=== PATIENT | male | born 1950 | race American Indian/Alaskan Native ===

== ENCOUNTER 2018-09-03 18:55 | Emergency (ER) | payer OTHER ==
[2018-09-03 20:28] VITALS: BP 179/79
--- NOTE | 2018-09-03 22:44 | XRay Report ---
PROCEDURE: XR SHOULDER BILAT 2+V TECHNIQUE: 3 views of each shoulder were performed HISTORY: bilateral shoulder pain COMPARISONS: None FINDINGS: Mild osteopenia. Hypertrophic spurring of the right acromioclavicular joint. Glenohumeral joint space narrowing with i rregular spurring along the expected insertion of the supraspinatus. Similar findings on the left. No subluxation of the humeral head. Imaged lung apices are clear. IMPRESSION: Bilateral hypertrophic acromioclavicular change with degenerative spurring along the expected inserti on of the supraspinatus on the superolateral humeral head with mild hooking along the undersurface of the acromion likely contributing to impingement. This document is electronically signed by Jamila Diaz MD., September 03 2018 10:39:51 PM ET
[2018-09-03] MEDS ORDERED: TORADOL IM ONE (23:52)
--- NOTE | 2018-09-04 00:18 | Emergency Department Report ---
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 Complaint: Injury to:: right, shoulder Onset/Timin -: days(s) Other Extremity Injury: Shoulder: Right Other Injuries: none Handedness: right Place: work Severity scale (0 -10): 5 Improves With: none Worsens With: movement of extremity Context: other (overuse ) Associated Symptoms: denies: weakness, numbness, neck pain, suspects foreign body, nausea/vomiting, heard/felt popping sensat - Related Data Home Medications Medication Instructions Recorded Confirmed Last Taken Aspirin [Aspirin BABY CHEW TAB] 81 mg PO DAILY 08/15/13 08/15/13 08/14/13 Carvedilol [Coreg] 12.5 mg PO BID 08/15/13 08/15/13 08/14/13 Lisinopril [Zestril] 40 mg PO DAILY 08/15/13 08/15/13 08/14/13 Simvastatin 20 mg PO QDAY 08/15/13 08/15/13 08/14/13 hydroCHLOROthiazide 12.5 mg PO DAILY 08/15/13 08/15/13 08/14/13 [Hydrochlorothiazide] Previous Rx's Medication Instructions Recorded Last Taken Type Acetaminophen [Tylenol Extra 1,000 mg PO QID PRN #30 tablet 09/04/18 Unknown Rx Strength] Cyclobenzaprine [Flexeril] 10 mg PO TID PRN #30 tablet 09/04/18 Unknown Rx Diclofenac Sodium [Voltaren] 100 gm TP TID PRN #1 tube 09/04/18 Unknown Rx predniSONE [Deltasone] 40 mg PO QDAY 5 Days #10 tab 09/04/18 Unknown Rx Allergies Allergy/AdvReac Type Severity Reaction Status Date / Time No Known Allergies Allergy Verified 08/15/13 06:21 ED Review of Systems ROS: Stated complaint: RT SHOULDER PAIN Other details as noted in HPI Constitutional: denies: chills, fever Eyes: denies: eye pain, eye discharge, vision change ENT: denies: ear pain, throat pain Respiratory: denies: cough, shortness of breath, wheezing Cardiovascular: denies: chest pain, palpitations Endocrine: no symptoms reported Gastrointestinal: denies: abdominal pain, nausea, diarrhea Genitourinary: denies: urgency, dysuria Musculoskeletal: arthralgia, other (right shoulder pain ). denies: back pain, joint swelling Skin: denies: rash, lesions Neurological: denies: headache, weakness, paresthesias Psychiatric: denies: anxiety, depression Hematological/Lymphatic: denies: easy bleeding, easy bruising ED Past Medical Hx - Past Medical History Hx Hypertension: Yes Hx Diabetes: Yes (X 15 yrs) - Surgical History Hx Cholecystectomy: Yes Hx Appendectomy: Yes - Social History Smoking Status: Never Smoker Substance Use Type: None - Medications Home Medications: Home Medications Medication Instructions Recorded Confirmed Last Taken Type Aspirin [Aspirin BABY CHEW TAB] 81 mg PO DAILY 08/15/13 08/15/13 08/14/13 History Carvedilol [Coreg] 12.5 mg PO BID 08/15/13 08/15/13 08/14/13 History Lisinopril [Zestril] 40 mg PO DAILY 08/15/13 08/15/13 08/14/13 History Simvastatin 20 mg PO QDAY 08/15/13 08/15/13 08/14/13 History hydroCHLOROthiazide 12.5 mg PO DAILY 08/15/13 08/15/13 08/14/13 History [Hydrochlorothiazide] Acetaminophen [Tylenol Extra 1,000 mg PO QID PRN #30 tablet 09/04/18 Unknown Rx Strength] Cyclobenzaprine [Flexeril] 10 mg PO TID PRN #30 tablet 09/04/18 Unknown Rx Diclofenac Sodium [Voltaren] 100 gm TP TID PRN #1 tube 09/04/18 Unknown Rx predniSONE [Deltasone] 40 mg PO QDAY 5 Days #10 tab 09/04/18 Unknown Rx ED Physical Exam - General Limitations: No Limitations General appearance: alert, in no apparent distress - Head Head exam: Present: atraumatic, normocephalic - Eye Eye exam: Present: normal appearance - ENT ENT exam: Present: mucous membranes moist - Neck Neck exam: Present: normal inspection - Respiratory Respiratory exam: Present: normal lung sounds bilaterally. Absent: respiratory distress - Cardiovascular Cardiovascular Exam: Present: regular rate, normal rhythm. 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 Absent: swelling, abrasion, laceration, ecchymosis, deformity, crepidus, dislocation, erythema, tenderness over AC joint Upper Arm exam: Present: normal inspection, full ROM. Absent: tenderness Elbow exam: Present: full ROM. Absent: tenderness, swelling Forearm Wrist exam: Present: normal inspection, full ROM. Absent: tenderness Hand Wrist exam: Present: normal inspection, full ROM. Absent: tenderness Neuro motor exam: Present: wrist extension intact, thumb opposition intact, thumb IP flexion intact, thumb adduction intact, fingers 2-5 abduction intact Neurosensory exam: Present: 2-point discrimination, radial nerve intact, ulnar nerve intact, median nerve intact Vascular: Present: vascular compromise, normal capillary refill, radial pulse, brachial pulse, ulnar pulse. Absent: pulse deficit radial art, pulse deficit ulnar art, pulse deficit brachial art - Back Exam Back exam: Present: normal inspection, full ROM. Absent: tenderness, CVA tenderness (R), CVA tenderness (L), muscle spasm, paraspinal tenderness, vertebral tenderness, rash noted - Neurological Exam Neurological exam: Present: alert, oriented X3, CN II-XII intact, normal gait, reflexes normal - Psychiatric Psychiatric exam: Present: normal affect, normal mood - Skin Skin exam: Present: warm, dry, intact, normal color. Absent: rash ED Course Vital Signs 09/03/18 20:24 Temperature 98.4 F Pulse Rate 84 Respiratory 18 Rate Blood Pressure 179/79 O2 Sat by Pulse 99 Oximetry ED Medical Decision Making - Medical Decision Making This is a shoulder strain secondary to overuse plan : tylenol voltaren gel, flexeril shoulder exercises , rest, follow up pcp in 2-3 days return to ed if symptoms worsen, pt verbalizee agreement and understanding of discharge plan , pt dc'd to home in stable condition at this time. Critical care attestation.: If time is entered above; I have spent that time in minutes in the direct care of this critically ill patient, excluding procedure time. ED Disposition Clinical Impression: Muscle strain, shoulder region Qualifiers: Encounter type: initial encounter Laterality: right Qualified Code(s): S46.911A - Strain of unspecified muscle, fascia and tendon at shoulder and upper arm level, right arm, initial encounter Disposition: DC-01 TO HOME OR SELFCARE Is pt being admited?: No Does the pt Need Aspirin: No Condition: Stable Instructions: Muscle Strain (ED), Shoulder Sprain (ED) Prescriptions: predniSONE [Deltasone] 40 mg PO QDAY 5 Days #10 tab Cyclobenzaprine [Flexeril] 10 mg PO TID PRN #30 tablet PRN Reason: Muscle Spasm Acetaminophen [Tylenol Extra Strength] 1,000 mg PO QID PRN #30 tablet PRN Reason: pain Diclofenac Sodium [Voltaren] 100 gm TP TID PRN #1 tube PRN Reason: pain Referrals: TERESITA JOYCE MD [Primary Care Provider] - 3-5 Days Forms: Work/School Release Form(ED) Time of Disposition: 00:27
== END 2018-09-04 00:33 | disposition home or self-care (01) ==
LOC: ED 18:55
DX: S46.911A Strain of unspecified muscle, fascia and tendon at shoulder and upper arm level, right arm, initial encounter (principal); I10 Essential (primary) hypertension; E11.9 Type 2 diabetes mellitus without complications; X50.0XXA Overexertion from strenuous movement or load, initial encounter; Y93.89 Activity, other specified; Y92.89 Other specified places as the place of occurrence of the external cause; Y99.8 Other external cause status
CPT/HCPCS: 73030; 96372; 99283; J1885

== ENCOUNTER 2018-11-02 10:15 | Emergency (ER) | payer OTHER ==
--- NOTE | 2018-11-02 11:09 | Emergency Department Report ---
ED General Adult HPI - General Chief complaint: Hyperglycemia Stated complaint: GLUCOSE HIGH/HBP Time Seen by Provider: 11/02/18 10:51 Source: patient, RN notes reviewed, old records reviewed Mode of arrival: Ambulatory Limitations: No Limitations - History of Present Illness Initial comments: This is a 68-year-old gentleman. This patient is not known to this provider previously. His primary care doctor is Dr. Dockery. 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 He reports his blood pressure this morning was 175/95. He reports his sugar was 246. He endorses medication compliance. He denies dietary indiscretions. He denies physical pain. He takes metformin, 1000 mg, twice daily, Januvia, 50 mg, losartan, 25 mg, amlodipine, 10 mg He denies headache, neck pain, chest pain, abdominal pain, shortness of breath, urinary symptoms. He denies COMPLAINTS at this time. He would like to go home. -: Sudden Improves with: none Worsens with: none Associated Symptoms: denies other symptoms - Related Data Home Medications Medication Instructions Recorded Confirmed Last Taken Aspirin [Aspirin BABY CHEW TAB] 81 mg PO DAILY 08/15/13 08/15/13 08/14/13 Carvedilol [Coreg] 12.5 mg PO BID 08/15/13 08/15/13 08/14/13 Lisinopril [Zestril] 40 mg PO DAILY 08/15/13 08/15/13 08/14/13 Simvastatin 20 mg PO QDAY 08/15/13 08/15/13 08/14/13 hydroCHLOROthiazide 12.5 mg PO DAILY 08/15/13 08/15/13 08/14/13 [Hydrochlorothiazide] Previous Rx's Medication Instructions Recorded Last Taken Type Acetaminophen [Tylenol Extra 1,000 mg PO QID PRN #30 tablet 09/04/18 Unknown Rx Strength] Cyclobenzaprine [Flexeril] 10 mg PO TID PRN #30 tablet 09/04/18 Unknown Rx Diclofenac Sodium [Voltaren] 100 gm TP TID PRN #1 tube 09/04/18 Unknown Rx predniSONE [Deltasone] 40 mg PO QDAY 5 Days #10 tab 09/04/18 Unknown Rx Allergies Allergy/AdvReac Type Severity Reaction Status Date / Time No Known Allergies Allergy Verified 11/02/18 10:16 ED Review of Systems ROS: Stated complaint: GLUCOSE HIGH/HBP Other details as noted in HPI Comment: All other systems reviewed and negative ED Past Medical Hx - Past Medical History Hx Hypertension: Yes Hx Diabetes: Yes - Surgical History Hx Cholecystectomy: Yes Hx Appendectomy: Yes - Social History Smoking Status: Never Smoker Substance Use Type: None - Medications Home Medications: Home Medications Medication Instructions Recorded Confirmed Last Taken Type Aspirin [Aspirin BABY CHEW TAB] 81 mg PO DAILY 08/15/13 08/15/13 08/14/13 History Carvedilol [Coreg] 12.5 mg PO BID 08/15/13 08/15/13 08/14/13 History Lisinopril [Zestril] 40 mg PO DAILY 08/15/13 08/15/13 08/14/13 History Simvastatin 20 mg PO QDAY 08/15/13 08/15/13 08/14/13 History hydroCHLOROthiazide 12.5 mg PO DAILY 08/15/13 08/15/13 08/14/13 History [Hydrochlorothiazide] Acetaminophen [Tylenol Extra 1,000 mg PO QID PRN #30 tablet 09/04/18 Unknown Rx Strength] Cyclobenzaprine [Flexeril] 10 mg PO TID PRN #30 tablet 09/04/18 Unknown Rx Diclofenac Sodium [Voltaren] 100 gm TP TID PRN #1 tube 09/04/18 Unknown Rx predniSONE [Deltasone] 40 mg PO QDAY 5 Days #10 tab 09/04/18 Unknown Rx ED Physical Exam - General Limitations: No Limitations General appearance: alert, in no apparent distress - Head Head exam: Present: atraumatic, normocephalic - Eye Eye exam: Present: normal appearance, EOMI. Absent: nystagmus - ENT ENT exam: Present: normal exam, normal orophraynx, mucous membranes moist, normal external ear exam - Neck Neck exam: Present: normal inspection, full ROM. Absent: tenderness, meningismus - Respiratory Respiratory exam: Present: normal lung sounds bilaterally. Absent: respiratory distress - Cardiovascular Cardiovascular Exam: Present: regular rate, normal rhythm, normal heart sounds. Absent: bradycardia, tachycardia, irregular rhythm, systolic murmur, diastolic murmur, rubs, gallop - GI/Abdominal GI/Abdominal exam: Present: soft. Absent: distended, tenderness, guarding, r ebound, rigid, pulsatile mass - Rectal Rectal exam: Present: deferred - Extremities Exam Extremities exam: Present: normal inspection, full ROM, other (2+ pulses noted in the bilateral upper, lower extremities. Compartments soft. No long bony tenderness. The pelvis is stable.). Absent: pedal edema, calf tenderness - Back Exam Back exam: Present: normal inspection, full ROM. Absent: tenderness, CVA tenderness (R), CVA tenderness (L), paraspinal tenderness, vertebral tenderness - Neurological Exam Neurological exam: Present: alert, oriented X3, normal gait, other (Extraocular movements intact. Tongue midline. No facial droop. Facial sensation intact to light touch in the V1, V2, V3 distribution bilaterally. 5 and 5 strength in 4 extremities.. Sensation is intact to light touch in 4 extremities.). Absent: motor sensory deficit - Psychiatric Psychiatric exam: Present: normal affect, normal mood - Skin Skin exam: Present: warm, dry, intact, normal color. Absent: rash ED Course Vital Signs 11/02/18 10:29 Temperature 97.8 F Pulse Rate 82 Respiratory 20 Rate Blood Pressure 171/86 O2 Sat by Pulse 100 Oximetry - Reevaluation(s) Reevaluation #1: 11/02/18 12:30 playing a card game on a cell phone and in no distress ED Medical Decision Making - Lab Data Result diagrams: 11/02/18 10:58 11/02/18 10:58 Vital Signs 11/02/18 10:29 Temperature 97.8 F Pulse Rate 82 Respiratory 20 Rate Blood Pressure 171/86 O2 Sat by Pulse 100 Oximetry Lab Results 11/02/18 11/02/18 11/02/18 Range/Units 10:28 10:54 10:58 WBC 5.4 (4.5-11.0) K/mm3 RBC 4.29 (3.65-5.03) M/mm3 Hgb 12.7 (11.8-15.2) gm/dl Hct 37.7 (35.5-45.6) % MCV 88 (84-94) fl MCH 30 (28-32) pg MCHC 34 (32-34) % RDW 12.4 L (13.2-15.2) % Plt Count 291 (140-440) K/mm3 Sodium (137-145) mmol/L Potassium (3.6-5.0) mmol/L Chloride (98-107) mmol/L Carbon Dioxide (22-30) mmol/L Anion Gap mmol/L BUN (9-20) mg/dL Creatinine (0.8-1.5) mg/dL Estimated GFR ml/min BUN/Creatinine Ratio % Glucose (75-100) mg/dL POC Glucose 289 H (70-105) Calcium (8.4-10.2) mg/dL Magnesium (1.7-2.3) mg/dL Total Creatine Kinase (55-170) units/L Urine Color Yellow (Yellow) Urine Turbidity Clear (Clear) Urine pH 5.0 (5.0-7.0) Ur Specific Wheeler 1.018 (1.003-1.030) Urine Protein <15 mg/dl (Negative) mg/dL Urine Glucose (UA) >=500 (Negative) mg/dL Urine Ketones Neg (Negative) mg/dL Urine Blood Neg (Negative) Urine Nitrite Neg (Negative) Urine Bilirubin Neg (Negative) Urine Urobilinogen < 2.0 (<2.0) mg/dL Ur Leukocyte Esterase Neg (Negative) Urine WBC (Auto) < 1.0 (0.0-6.0) /HPF Urine RBC (Auto) 3.0 (0.0-6.0) /HPF U Epithel Cells (Auto) < 1.0 (0-13.0) /HPF Urine Mucus Few /HPF // Range/Units 10:58 WBC (4.5-11.0) K/mm3 RBC (3.65-5.03) M/mm3 Hgb (11.8-15.2) gm/dl Hct (35.5-45.6) % MCV (84-94) fl MCH (28-32) pg MCHC (32-34) % RDW (13.2-15.2) % Plt Count (140-440) K/mm3 Sodium 134 L (137-145) mmol/L Potassium 4.3 (3.6-5.0) mmol/L Chloride 98.8 (98-107) mmol/L Carbon Dioxide 22 (22-30) mmol/L Anion Gap 18 mmol/L BUN 24 H (9-20) mg/dL Creatinine 1.2 (0.8-1.5) mg/dL Estimated GFR > 60 ml/min BUN/Creatinine Ratio 20 % Glucose 322 H (75-100) mg/dL POC Glucose (70-105) Calcium 9.1 (8.4-10.2) mg/dL Magnesium 2.10 (1.7-2.3) mg/dL Total Creatine Kinase 130 (55-170) units/L Urine Color (Yellow) Urine Turbidity (Clear) Urine pH (5.0-7.0) Ur Specific Wheeler (1.003-1.030) Urine Protein (Negative) mg/dL Urine Glucose (UA) (Negative) mg/dL Urine Ketones (Negative) mg/dL Urine Blood (Negative) Urine Nitrite (Negative) Urine Bilirubin (Negative) Urine Urobilinogen (<2.0) mg/dL Ur Leukocyte Esterase (Negative) Urine WBC (Auto) (0.0-6.0) /HPF Urine RBC (Auto) (0.0-6.0) /HPF U Epithel Cells (Auto) (0-13.0) /HPF Urine Mucus /HPF - Medical Decision Making Differential diagnosis, including but not limited to: Chronic hyperglycemia, chronic hypertension Assessment and plan: 68-year-old gentleman with complaint of hyperglycemia and hypertension. The patient is afebrile with reassuring vital signs. He does not appear to be in any acute distress. He has known history of hyperglycemia, and known history of hypertension. He currently is not exhibiting signs or symptoms that would require emergent hospitalization. He is given subcutaneous insulin for his hyperglycemia. The patient is medically suitable to be discharged to follow-up with an outpatient primary care doctor. Diet and lifestyle modifications. Critical care attestation.: If time is entered above; I have spent that time in minutes in the direct care of this critically ill patient, excluding procedure time. ED Disposition Clinical Impression: Elevated blood pressure reading, Hyperglycemia Disposition: DC-01 TO HOME OR SELFCARE Is pt being admited?: No Does the pt Need Aspirin: No Condition: Stable Additional Instructions: Please continue current outpatient medications. Participate in physical activity as tolerated. Please make certain to remain compliant with diet that is in accordance and appropriate with diabetic requirements. The patient may looked this up on line at the [place] [employer] website. Follow-up with her primary care doctor within 4-6 weeks. Long-term complications of hypertension and high blood sugar include stroke, heart attack, disability, paralysis, loss of quality of life. Please return to the emergency room right away with new, worsening or different symptoms, or symptoms not present on the initial emergency room evaluation. Referrals: PRIMARY CARE, [Primary Care Provider] - 3-5 Days JAVI DOCKERY MD [Referring] - 3-5 Days ANTONELLA DOCKERY MD [Referring] - 3-5 Days KETURAH DOCKERY MD [Referring] - 3-5 Days TERESITA DOCKERY MD [Referring] - 3-5 Days FARA DOCKERY JR, MD [Referring] - 3-5 Days JESSA DOCKERY MD [Referring] - 3-5 Days
[2018-11-02 11:15] LABS: Hematocrit 37.7 % (35.5-45.6); Hemoglobin 12.7 gm/dl (11.8-15.2); Mean Corpuscular HGB Conc 34 % (32-34); Mean Corpuscular Volume 88 fl (84-94); Platelet Count 291 K/mm3 (140-440); Red Blood Count 4.29 M/mm3 (3.65-5.03); Red Cell Distribution Width 12.4 % (13.2-15.2)
[2018-11-02 11:17] LABS: Bilirubin,Urine NEG (Negative); Blood,Urine NEG (Negative); Color,Urine Yellow (Yellow); Mucus,Urine FEW /HPF; Protein,Urine <15 mg/dL mg/dL (Negative); Urobilinogen,Urine < 2.0 mg/dL (<2.0); WBC,Urine < 1.0 /HPF (0.0-6.0)
[2018-11-02 11:31] LABS: BUN/Creatinine Ratio 20; Blood Urea Nitrogen 24 mg/dL (9-20); Calcium 9.1 mg/dL (8.4-10.2); Hemolysis Index 7
[2018-11-02] MEDS ORDERED: HumuLIN R SUB-Q ONE (12:05)
[2018-11-02 12:32] VITALS: BP 173/78
== END 2018-11-02 12:43 | disposition home or self-care (01) ==
LOC: ED 10:15
DX: E11.65 Type 2 diabetes mellitus with hyperglycemia (principal); I10 Essential (primary) hypertension; Z79.82 Long term (current) use of aspirin; Z90.49 Acquired absence of other specified parts of digestive tract
CPT/HCPCS: 36415; 80048; 81001; 82550; 82962; 83735; 85027; 96372; 99283; J1815

== ENCOUNTER 2020-02-04 07:17 | Emergency (ER) | payer MEDICARE ==
[2020-02-04 07:55] LABS: Basophils # (Auto) 0.1 K/mm3 (0.0-0.1); Basophils % (Auto) 1.6 % (0.0-1.8); Eosinophils # (Auto) 0.1 K/mm3 (0.0-0.4); Eosinophils % (Auto) 1.4 % (0.0-4.3); Hematocrit 36.8 % (35.5-45.6); Hemoglobin 12.6 gm/dl (11.8-15.2); Lymphocytes # (Auto) 1.8 K/mm3 (1.2-5.4); Mean Corpuscular HGB Conc 34 % (32-34); Mean Corpuscular Volume 86 fl (84-94); Monocytes # (Auto) 0.6 K/mm3 (0.0-0.8); Monocytes % (Auto) 8.3 % (0.0-7.3); Platelet Count 313 K/mm3 (140-440); Red Blood Count 4.27 M/mm3 (3.65-5.03); Red Cell Distribution Width 15.1 % (13.2-15.2)
--- NOTE | 2020-02-04 08:01 | XRay Report ---
CHEST 2 VIEWS INDICATION: SOB. COMPARISON: 01/03/2020. FINDINGS: Support devices: None. Heart: Within normal limits. Lungs/Pleura: Mild developing opacity left mid and lower zone and right base laterally. No signific ant pleural effusion. IMPRESSION: Suspect early, multifocal pneumonia. Signer Name: Jun Hernandez MD Signed: 02/04/2020 7:56 AM Workstation Name: [id number]
[2020-02-04 08:15] LABS: BUN/Creatinine Ratio 13; Blood Urea Nitrogen 13 mg/dL (9-20); Calcium 9.6 mg/dL (8.4-10.2); Hemolysis Index 13
[2020-02-04] MEDS ORDERED: SODIUM CHLORIDE 0.9% 1000 ML 1,000 ML IV ONE (08:15)
--- NOTE | 2020-02-04 09:41 | Emergency Department Report ---
ED Shortness of Breath HPI - General Chief Complaint: Dyspnea/Respdistress Stated Complaint: SOB Time Seen by Provider: 02/04/20 08:08 Source: patient Mode of arrival: Ambulatory Limitations: No Limitations - History of Present Illness Initial Comments: 69-year-old -[place] Citizen male with a past medical history of diabetes hypertension and cholesterolemia presents to the emergency room for shortness of breath with exertion. Patient was seen here on 01/03/2020 and was diagnosed with COVID 19. At that time patient was satting around 84 to 97% on room air. Patient comes in still reporting no taste no smell. Reports shortness of breath about the same as he was discharged. Patient states that shortness of breath is worse with exertion. Patient admits to fever chills x1 night with sweats. Patient reports he is constantly feels cold. He does admit to increased sleepiness decreased appetite. Patient reports he has not been able to follow- up with his primary care doctor Dr. Dockery at [facility] in [place] since they will see him because he is tested positive for COVID. MD Complaint: shortness of breath Onset/Timin -: week(s) Known History Of: diabetes, recurrent pnemonia, other (Hypertension) Treatments Prior to Arrival: none - Related Data Home Medications Medication Instructions Recorded Confirmed Last Taken Aspirin [Aspirin BABY CHEW TAB] 81 mg PO DAILY 08/15/13 01/04/20 08/14/13 Lisinopril [Zestril] 40 mg PO DAILY 08/15/13 01/04/20 08/14/13 Simvastatin 20 mg PO QDAY 08/15/13 01/04/20 08/14/13 carvediloL [Coreg] 12.5 mg PO BID 08/15/13 01/04/20 08/14/13 hydroCHLOROthiazide 12.5 mg PO DAILY 08/15/13 01/04/20 08/14/13 [Hydrochlorothiazide] Previous Rx's Medication Instructions Recorded Last Taken Type Cyclobenzaprine [Flexeril 10 MG 10 mg PO TID PRN #30 tablet 09/04/18 Unknown Rx TAB] Diclofenac Sodium [Voltaren] 100 gm TP TID PRN #1 tube 09/04/18 Unknown Rx dexAMETHasone [Decadron] 6 mg PO DAILY 7 Days #7 tablet 01/06/20 Unknown Rx guaiFENesin ER [Mucinex ER] 600 mg PO Q12H 10 Days #20 01/06/20 Unknown Rx tablet.er Azithromycin [Zithromax] 250 mg PO DAILY #6 tablet 02/04/20 Unknown Rx Allergies Allergy/AdvReac Type Severity Reaction Status Date / Time No Known Allergies Allergy Verified 11/02/18 10:16 ED Review of Systems ROS: Stated complaint: SOB Other details as noted in HPI Comment: All other systems reviewed and negative ED Past Medical Hx - Past Medical History Hx Hypertension: Yes Hx Diabetes: Yes Hx Sickle Cell Disease: No Hx HIV: No - Surgical History Hx Cholecystectomy: Yes Hx Appendectomy: Yes - Social History Smoking Status: Never Smoker Substance Use Type: Alcohol - Medications Home Medications: Home Medications Medication Instructions Recorded Confirmed Last Taken Type Aspirin [Aspirin BABY CHEW TAB] 81 mg PO DAILY 08/15/13 01/04/20 08/14/13 History Lisinopril [Zestril] 40 mg PO DAILY 08/15/13 01/04/20 08/14/13 History Simvastatin 20 mg PO QDAY 08/15/13 01/04/20 08/14/13 History carvediloL [Coreg] 12.5 mg PO BID 08/15/13 01/04/20 08/14/13 History hydroCHLOROthiazide 12.5 mg PO DAILY 08/15/13 01/04/20 08/14/13 History [Hydrochlorothiazide] Cyclobenzaprine [Flexeril 10 MG 10 mg PO TID PRN #30 tablet 09/04/18 01/04/20 Unknown Rx TAB] Diclofenac Sodium [Voltaren] 100 gm TP TID PRN #1 tube 09/04/18 01/04/20 Unknown Rx dexAMETHasone [Decadron] 6 mg PO DAILY 7 Days #7 tablet 01/06/20 Unknown Rx guaiFENesin ER [Mucinex ER] 600 mg PO Q12H 10 Days #20 01/06/20 Unknown Rx tablet.er Azithromycin [Zithromax] 250 mg PO DAILY #6 tablet 02/04/20 Unknown Rx ED Physical Exam - General Limitations: No Limitations General appearance: alert - Head Head exam: Present: atraumatic, normocephalic - Eye Eye exam: Present: normal appearance - ENT ENT exam: Present: mucous membranes moist - Neck Neck exam: Present: normal inspection, full ROM - Respiratory Respiratory exam: Present: normal lung sounds bilaterally - Cardiovascular Cardiovascular Exam: Present: regular rate, normal rhythm. Absent: systolic murmur, diastolic murmur, rubs, gallop - GI/Abdominal GI/Abdominal exam: Present: soft, normal bowel sounds - Extremities Exam Extremities exam: Present: normal inspection, full ROM - Back Exam Back exam: Present: normal inspection, full ROM - Neurological Exam Neurological exam: Present: alert - Psychiatric Psychiatric exam: Present: normal affect, normal mood - Skin Skin exam: Present: warm, dry, intact, normal color. Absent: rash ED Course Vital Signs 02/04/20 02/04/20 02/04/20 07:26 08:51 09:00 Temperature 98.6 F 98.5 F Pulse Rate 94 H 77 76 Respiratory 18 22 20 Rate Blood Pressure 161/85 178/84 Blood Pressure 178/84 [Left] O2 Sat by Pulse 99 100 100 Oximetry 02/04/20 02/04/20 02/04/20 09:35 10:01 10:30 Temperature Pulse Rate 76 78 Respiratory 20 19 Rate Blood Pressure 173/88 172/92 163/75 Blood Pressure [Left] O2 Sat by Pulse 100 100 100 Oximetry 02/04/20 02/04/20 11:00 12:01 Temperature Pulse Rate 76 76 Respiratory 15 20 Rate Blood Pressure 154/77 146/75 Blood Pressure [Left] O2 Sat by Pulse 98 99 Oximetry ED Medical Decision Making - Lab Data Result diagrams: 02/04/20 07:35 02/04/20 11:33 Laboratory Tests 02/04/20 02/04/20 02/04/20 07:35 07:35 08:35 WBC 7.0 RBC 4.27 Hgb 12.6 Hct 36.8 MCV 86 MCH 30 MCHC 34 RDW 15.1 Plt Count 313 Lymph % (Auto) 26.0 Tate % (Auto) 8.3 H Eos % (Auto) 1.4 Baso % (Auto) 1.6 Lymph # 1.8 Tate # 0.6 Eos # 0.1 Baso # 0.1 Seg Neutrophils % 62.7 Seg Neutrophils # 4.4 VBG pH Sodium 131 L Potassium 4.2 Chloride 96.2 L Carbon Dioxide 21 L Anion Gap 18 BUN 13 Creatinine 1.0 Estimated GFR > 60 BUN/Creatinine Ratio 13 Glucose 471 H POC Glucose Calcium 9.6 Total Bilirubin 0.40 Direct Bilirubin < 0.2 Indirect Bilirubin 0.2 AST 9 ALT 7 Alkaline Phosphatase 107 Total Protein 7.0 Albumin 3.6 L Albumin/Globulin Ratio 1.1 02/04/20 02/04/20 02/04/20 08:35 10:14 11:33 WBC RBC Hgb Hct MCV MCH MCHC RDW Plt Count Lymph % (Auto) Tate % (Auto) Eos % (Auto) Baso % (Auto) Lymph # Tate # Eos # Baso # Seg Neutrophils % Seg Neutrophils # VBG pH 7.326 Sodium 139 D Potassium 4.0 Chloride 105.4 Carbon Dioxide 20 L Anion Gap 18 BUN 12 Creatinine 0.8 Estimated GFR > 60 BUN/Creatinine Ratio 15 Glucose 131 H POC Glucose 350 H Calcium 9.0 Total Bilirubin Direct Bilirubin Indirect Bilirubin AST ALT Alkaline Phosphatase Total Protein Albumin Albumin/Globulin Ratio - EKG Data EKG shows normal: sinus rhythm Rate: normal - Radiology Data Radiology results: report reviewed Referring Physician:GARFIELD HUNTERPatient Name:KEREN SANCHEZPatient ID:[id number] of :[id number]:MaleAccession:[id number] Date:[id number] Status:Finalized Findings [facility] [address] [place] [address] XRay Report Signed Patient: KEREN SANCHEZ MR#: [id number] : 1950 Acct:[id number] Age/Sex: 69 / M ADM Date: 02/04/20 Loc: ED Attending Dr: Ordering Physician: GARFIELD HUNTER MD Date of Service: 02/04/20 Procedure(s): XR chest routine 2V Accession Number(s): [id number] cc: GARFIELD HUNTER MD Fluoro Time In Minutes: CHEST 2 VIEWS INDICATION: SOB. COMPARISON: 01/03/2020. FINDINGS: Support devices: None. Heart: Within normal limits. Lungs/Pleura: Mild developing opacity left mid and lower zone and right base laterally. No significant pleural effusion. IMPRESSION: Suspect early, multifocal pneumonia. Signer Name: Jun Hernandez MD Signed: 02/04/2020 7:56 AM Workstation Name: [id number] Transcribed By: ES Dictated By: Jun Hernandez MD Electronically Authenticated By: Jun Hernandez MD Signed Date/Time: 02/04/20755 DD/ 0755 TD/TT: - Medical Decision Making 69-year-old -[place] Citizen male with a past medical history of diabetes hypertension and cholesterolemia presents to the emergency room for shortness of breath with exertion. Patient was seen here on 01/03/2020 and was diagnosed with COVID 19. At that time patient was satting around 84 to 97% on room air. Patient comes in still reporting no taste no smell. Reports shortness of breath about the same as he was discharged. Patient states that shortness of breath is worse with exertion. Patient admits to fever chills x1 night with sweats. Patient reports he is constantly feels cold. He does admit to increased sleepiness decreased appetite. Patient reports he has not been able to follow- up with his primary care doctor Dr. Dockery at [facility] in [place] since they will see him because he is tested positive for COVID. Patient's blood sugar was 471. IV initiated normal saline 10 units of insulin. Patient is on reference data expert with pulse ox monitor. Patient's vital signs have been stable heart rate of 94 pulse ox of 99%. EKG is stable just shows left ventricular hypertrophy. Patient is not exhibiting any signs for emergent hospitalization. Patient was given IV normal saline and IV regular insulin with improvement of his hyperglycemic from 471 now to 131. Patient is medically suitable to be discharged with primary care follow-up. Patient is encouraged to follow a diabetic diet increase his water intake. Critical care attestation.: If time is entered above; I have spent that time in minutes in the direct care of this critically ill patient, excluding procedure time. ED Disposition Clinical Impression: Hyperglycemia, Diabetes 1.5, managed as type 2 Pneumonia Qualifiers: Pneumonia type: due to unspecified organism Laterality: bilateral Lung location: lower lobe of lung Qualified Code(s): J18.9 - Pneumonia, unspecified organism Disposition: DC-01 TO HOME OR SELFCARE Is pt being admited?: No Does the pt Need Aspirin: No Condition: Stable Instructions: Diabetes Mellitus Type 2 in Adults (ED), Community-acquired Pneumonia (ED) Additional Instructions: Please continue taking care of your chronic disease management. Follow-up with your primary care provider. Return back to the emergency room for any worsening symptoms. Prescriptions: Azithromycin [Zithromax] 250 mg PO DAILY #6 tablet Referrals: PRIMARY CARE,MD [Primary Care Provider] - 3-5 Days MARK BUTCHER MD [Staff Physician] - 3-5 Days Forms: Work/School Release Form(ED)
[2020-02-04 09:44] LABS: Alanine Aminotransferase 7 units/L (7-56); Albumin 3.6 g/dL (3.9-5)
[2020-02-04] MEDS ORDERED: INSULIN REGULAR, HUMAN 100 UNIT/ML 3ML VIAL IV ONE (09:45)
[2020-02-04 09:48] LABS: Bilirubin,Direct < 0.2 mg/dL (0-0.2)
[2020-02-04] MEDS ORDERED: INSULIN REGULAR, HUMAN 100 UNITS/1 ML ONE (10:00)
[2020-02-04 12:20] LABS: BUN/Creatinine Ratio 15; Blood Urea Nitrogen 12 mg/dL (9-20); Hemolysis Index 11
[2020-02-04 12:43] VITALS: BP 146/75
== END 2020-02-04 13:20 | disposition home or self-care (01) ==
LOC: ED 07:17
DX: J18.9 Pneumonia, unspecified organism (principal); E11.65 Type 2 diabetes mellitus with hyperglycemia; I10 Essential (primary) hypertension; Z90.49 Acquired absence of other specified parts of digestive tract; Z79.2 Long term (current) use of antibiotics; Z79.899 Other long term (current) drug therapy
CPT/HCPCS: 36415; 71046; 80048; 80076; 82805; 82962; 85025; 96361; 96374; 99284; J7030; 93005; J1815

== ENCOUNTER 2020-04-22 03:31 | Emergency (ER) | payer MEDICARE ==
[2020-04-22 04:09] LABS: Hematocrit 41.3 % (35.5-45.6); Hemoglobin 13.6 gm/dl (11.8-15.2); Mean Corpuscular HGB Conc 33 % (32-34); Mean Corpuscular Volume 87 fl (84-94); Platelet Count 254 K/mm3 (140-440); Red Blood Count 4.73 M/mm3 (3.65-5.03); Red Cell Distribution Width 12.9 % (13.2-15.2)
[2020-04-22 04:31] LABS: Alanine Aminotransferase 17 units/L (7-56); BUN/Creatinine Ratio 13; Blood Urea Nitrogen 15 mg/dL (9-20); Calcium 9.2 mg/dL (8.4-10.2); Hemolysis Index 3
[2020-04-22 04:31] LABS: Bilirubin,Urine NEG (Negative); Blood,Urine LG (Negative); Color,Urine Red (Yellow); Urobilinogen,Urine < 2.0 mg/dL (<2.0)
[2020-04-22 04:53] LABS: Basophils # (Auto) 0.1 K/mm3 (0.0-0.1); Eosinophils % (Auto) 0.1 % (0.0-4.3); Lymphocytes # (Auto) 1.2 K/mm3 (1.2-5.4); Lymphocytes % (Auto) 7.7 % (13.4-35.0); Monocytes # (Auto) 0.6 K/mm3 (0.0-0.8); Monocytes % (Auto) 3.8 % (0.0-7.3)
[2020-04-22 04:53] LABS: Protein,Urine >500 mg/dL (Negative); RBC,Urine > 182.0 /HPF (0.0-6.0)
[2020-04-22 04:54] LABS: WBC,Urine > 182.0 /HPF (0.0-6.0)
[2020-04-22] MEDS ORDERED: INSULIN REGULAR, HUMAN 100 UNIT/ML 3ML VIAL SUB-Q ONE ×2 (09:49→10:53)
[2020-04-22] MEDS ORDERED: SODIUM CHLORIDE 0.9% IRR 500 ML BOTTLE IR ONE (09:49)
--- NOTE | 2020-04-22 09:51 | Emergency Department Report ---
ED General Adult HPI - General Chief complaint: Urogenital-Male Stated complaint: BLOOD IN URINE PUI?: No Time Seen by Provider: 04/22/20 09:40 Source: patient, RN notes reviewed, old records reviewed Mode of arrival: Ambulatory Limitations: No Limitations - History of Present Illness Initial comments: The patient was evaluated in the emergency department for symptoms described in the history of present illness. He/she was evaluated in the context of the global COVID-19 pandemic, which necessitated consideration that the patient might be at risk for infection with the virus that causes COVID-19. Institutional protocols and algorithms that pertain to the evaluation of patients at risk for COVID-19 are in a state of rapid change based on information released by regulatory bodies including the CDC and federal and state organizations. These policies and algorithms were followed during the patient's care in the emergency department. Please note that these policies, procedures and recommendations changed on a rapid basis. Patient is a pleasant and cooperative 69-year-old gentleman. I have evaluated him in the past. His past medical history includes heart disease, hypertension, diabetes, recent hospitalization for COVID-19 The patient presents to the ER today with a complaint of essentially painless hematuria. It started yesterday. He has very mild dysuria. He denies headache, neck pain, chest pain, abdominal pain, shortness of breath or muscular pain. He denies hematemesis, bright red blood per rectum. He denies travel to the [place], [place], [place], and [place]. He is a former tobacco smoker, but has not smoked for 30 years. He also denies industrial exposure to blue dye. He endorses minimal dysuria. Hematuria essentially constant since last night, he does not take systemic anti coagulation, but believes he takes aspirin. He does take "pills" for his diabetes, he did not receive his diabetic medication last night or this morning. -: Gradual, hour(s) Consistency: constant Improves with: none Worsens with: none Associated Symptoms: denies other symptoms - Related Data Home Medications Medication Instructions Recorded Confirmed Last Taken Aspirin [Aspirin BABY CHEW TAB] 81 mg PO DAILY 08/15/13 01/04/20 08/14/13 Lisinopril [Zestril] 40 mg PO DAILY 08/15/13 01/04/20 08/14/13 Simvastatin 20 mg PO QDAY 08/15/13 01/04/20 08/14/13 carvediloL [Coreg] 12.5 mg PO BID 08/15/13 01/04/20 08/14/13 hydroCHLOROthiazide 12.5 mg PO DAILY 08/15/13 01/04/20 08/14/13 [Hydrochlorothiazide] Previous Rx's Medication Instructions Recorded Last Taken Type dexAMETHasone [Decadron] 6 mg PO DAILY 7 Days #7 tablet 01/06/20 Unknown Rx guaiFENesin ER [Mucinex ER] 600 mg PO Q12H 10 Days #20 01/06/20 Unknown Rx tablet.er Nitrofurantoin Gilmer/M-Cryst 100 mg PO Q12HR #13 capsule 04/22/20 Unknown Rx [Macrobid CAP] Allergies Allergy/AdvReac Type Severity Reaction Status Date / Time No Known Allergies Allergy Verified 11/02/18 10:16 ED Review of Systems ROS: Stated complaint: BLOOD IN URINE Other details as noted in HPI Comment: All other systems reviewed and negative Genitourinary: as per HPI, hematuria. denies: discharge, testicular pain, testicular mass ED Past Medical Hx - Past Medical History Previous Medical History?: Yes Hx Hypertension: Yes Hx Diabetes: Yes Hx Sickle Cell Disease: No Hx HIV: No - Surgical History Past Surgical History?: Yes Hx Cholecystectomy: Yes Hx Appendectomy: Yes - Social History Smoking Status: Never Smoker Substance Use Type: Alcohol - Medications Home Medications: Home Medications Medication Instructions Recorded Confirmed Last Taken Type Aspirin [Aspirin BABY CHEW TAB] 81 mg PO DAILY 08/15/13 01/04/20 08/14/13 History Lisinopril [Zestril] 40 mg PO DAILY 08/15/13 01/04/20 08/14/13 History Simvastatin 20 mg PO QDAY 08/15/13 01/04/20 08/14/13 History carvediloL [Coreg] 12.5 mg PO BID 08/15/13 01/04/20 08/14/13 History hydroCHLOROthiazide 12.5 mg PO DAILY 08/15/13 01/04/20 08/14/13 History [Hydrochlorothiazide] dexAMETHasone [Decadron] 6 mg PO DAILY 7 Days #7 tablet 01/06/20 Unknown Rx guaiFENesin ER [Mucinex ER] 600 mg PO Q12H 10 Days #20 01/06/20 Unknown Rx tablet.er Nitrofurantoin Gilmer/M-Cryst 100 mg PO Q12HR #13 capsule 04/22/20 Unknown Rx [Macrobid CAP] ED Physical Exam - General Limitations: No Limitations, Other (Chaperoned by nurse Sofia Mackey) General appearance: alert, in no apparent distress - Head Head exam: Present: atraumatic, normocephalic - Eye Eye exam: Present: normal appearance, EOMI. Absent: nystagmus - ENT ENT exam: Present: normal exam, normal orophraynx, mucous membranes moist, normal external ear exam - Neck Neck exam: Present: normal inspection, full ROM. Absent: tenderness, mening ismus - Respiratory Respiratory exam: Present: normal lung sounds bilaterally. Absent: respiratory distress, wheezes, rales, rhonchi, stridor, decreased breath sounds - Cardiovascular Cardiovascular Exam: Present: regular rate, normal rhythm, normal heart sounds. Absent: bradycardia, tachycardia, irregular rhythm, systolic murmur, diastolic murmur, rubs, gallop - GI/Abdominal GI/Abdominal exam: Present: soft, normal bowel sounds. Absent: distended, tenderness, guarding, rebound, rigid, pulsatile mass - Rectal Rectal exam: Present: deferred - exam: Present: normal inspection, other (There is normal testicular lie. There is normal cremasteric reflex. There is no testicular tenderness. There is no testicular swelling). Absent: testicular tenderness, circumcision (Uncircumcised, foreskin easily retracts) External exam: Present: normal external exam, other (Chaperoned by nurse Sofia Mackey) - Extremities Exam Extremities exam: Present: normal inspection, full ROM, other (2+ pulses noted in the bilateral upper and lower extremities. There is no palpable cord. negative Homans sign. Muscular compartments are soft. The pelvis is stable.). Absent: tenderness, pedal edema, joint swelling, calf tenderness - Back Exam Back exam: Present: normal inspection, full ROM. Absent: tenderness, CVA tenderness (R), CVA tenderness (L), paraspinal tenderness, vertebral tenderness - Neurological Exam Neurological exam: Present: alert, oriented X3, normal gait, other (No facial droop. Tongue midline. Extraocular movements intact bilaterally. Facial sensation intact to light touch in V1, V2, V3 distribution bilaterally. 5 and a 5 strength in 4 extremities. Sensation intact to light touch in 4 extremities.). Absent: motor sensory deficit - Psychiatric Psychiatric exam: Present: normal affect, normal mood - Skin Skin exam: Present: warm, dry, intact, normal color. Absent: rash ED Course Vital Signs 04/22/20 04/22/20 03:39 10:28 Temperature 98.9 F 98.8 F Pulse Rate 121 H 93 H Respiratory 18 18 Rate Blood Pressure 143/81 157/73 [Right] O2 Sat by Pulse 96 99 Oximetry ED Medical Decision Making - Lab Data Result diagrams: 04/22/20 03:40 04/22/20 03:40 Vital Signs 04/22/20 04/22/20 03:39 10:28 Temperature 98.9 F 98.8 F Pulse Rate 121 H 93 H Respiratory 18 18 Rate Blood Pressure 143/81 157/73 [Right] O2 Sat by Pulse 96 99 Oximetry Lab Results 04/22/20 04/22/20 04/22/20 Range/Units 03:40 03:40 10:45 WBC 15.3 H (4.5-11.0) K/mm3 RBC 4.73 (3.65-5.03) M/mm3 Hgb 13.6 (11.8-15.2) gm/dl Hct 41.3 (35.5-45.6) % MCV 87 (84-94) fl MCH 29 (28-32) pg MCHC 33 (32-34) % RDW 12.9 L (13.2-15.2) % Plt Count 254 (140-440) K/mm3 Lymph % (Auto) 7.7 L (13.4-35.0) % Gilmer % (Auto) 3.8 (0.0-7.3) % Eos % (Auto) 0.1 (0.0-4.3) % Baso % (Auto) 1.0 (0.0-1.8) % Lymph # (Auto) 1.2 (1.2-5.4) K/mm3 Gilmer # (Auto) 0.6 (0.0-0.8) K/mm3 Eos # (Auto) 0.0 (0.0-0.4) K/mm3 Baso # (Auto) 0.1 (0.0-0.1) K/mm3 Seg Neutrophils % 87.4 H (40.0-70.0) % Seg Neutrophils # 13.4 H (1.8-7.7) K/mm3 Sodium 132 L (137-145) mmol/L Potassium 3.7 (3.6-5.0) mmol/L Chloride 96.7 L (98-107) mmol/L Carbon Dioxide 20 L (22-30) mmol/L Anion Gap 19 mmol/L BUN 15 (9-20) mg/dL Creatinine 1.2 (0.8-1.3) mg/dL Estimated GFR > 60 ml/min BUN/Creatinine Ratio 13 % Glucose 370 H (75-100) mg/dL POC Glucose 304 H (70-105) mg/dL Calcium 9.2 (8.4-10.2) mg/dL Total Bilirubin 1.00 (0.1-1.2) mg/dL AST 11 (5-40) units/L ALT 17 (7-56) units/L Alkaline Phosphatase 88 (35-129) units/L Total Creatine Kinase 57 (55-170) units/L Total Protein 7.5 (6.3-8.2) g/dL Albumin 4.0 (3.9-5) g/dL Albumin/Globulin Ratio 1.1 % Urine Color (Yellow) Urine Turbidity (Clear) Urine pH (5.0-7.0) Ur Specific [place] (1.003-1.030) Urine Protein (Negative) mg/dL Urine Glucose (UA) (Negative) mg/dL Urine Ketones (Negative) mg/dL Urine Blood (Negative) Urine Nitrite (Negative) Urine Bilirubin (Negative) Urine Urobilinogen (<2.0) mg/dL Ur Leukocyte Esterase (Negative) Urine WBC (Auto) (0.0-6.0) /HPF Urine RBC (Auto) (0.0-6.0) /HPF Urine WBC Clumps /HPF 11/15/20 Range/Units Unknown WBC (4.5-11.0) K/mm3 RBC (3.65-5.03) M/mm3 Hgb (11.8-15.2) gm/dl Hct (35.5-45.6) % MCV (84-94) fl MCH (28-32) pg MCHC (32-34) % RDW (13.2-15.2) % Plt Count (140-440) K/mm3 Lymph % (Auto) (13.4-35.0) % Gilmer % (Auto) (0.0-7.3) % Eos % (Auto) (0.0-4.3) % Baso % (Auto) (0.0-1.8) % Lymph # (Auto) (1.2-5.4) K/mm3 Gilmer # (Auto) (0.0-0.8) K/mm3 Eos # (Auto) (0.0-0.4) K/mm3 Baso # (Auto) (0.0-0.1) K/mm3 Seg Neutrophils % (40.0-70.0) % Seg Neutrophils # (1.8-7.7) K/mm3 Sodium (137-145) mmol/L Potassium (3.6-5.0) mmol/L Chloride (98-107) mmol/L Carbon Dioxide (22-30) mmol/L Anion Gap mmol/L BUN (9-20) mg/dL Creatinine (0.8-1.3) mg/dL Estimated GFR ml/min BUN/Creatinine Ratio % Glucose (75-100) mg/dL POC Glucose (70-105) mg/dL Calcium (8.4-10.2) mg/dL Total Bilirubin (0.1-1.2) mg/dL AST (5-40) units/L ALT (7-56) units/L Alkaline Phosphatase (35-129) units/L Total Creatine Kinase (55-170) units/L Total Protein (6.3-8.2) g/dL Albumin (3.9-5) g/dL Albumin/Globulin Ratio % Urine Color Red (Yellow) Urine Turbidity Cloudy (Clear) Urine pH 6.0 (5.0-7.0) Ur Specific [place] 1.026 (1.003-1.030) Urine Protein >500 (Negative) mg/dL Urine Glucose (UA) >=500 (Negative) mg/dL Urine Ketones Neg (Negative) mg/dL Urine Blood Lg (Negative) Urine Nitrite Neg (Negative) Urine Bilirubin Neg (Negative) Urine Urobilinogen < 2.0 (<2.0) mg/dL Ur Leukocyte Esterase Sm (Negative) Urine WBC (Auto) > 182.0 H (0.0-6.0) /HPF Urine RBC (Auto) > 182.0 (0.0-6.0) /HPF Urine WBC Clumps 3+ /HPF - Medical Decision Making Differential diagnosis, including but not limited to: Hemorrhagic cystitis, urinary tract infection, malignancy, incidental hyperglycemia Assessment and plan: 69-year-old gentleman, who was afebrile, with reassuring vital signs, with resolved hematuria. Tachycardia has resolved. A 14 [place] catheter was inserted by the nurse under my direct supervision, and clear yellow urine was immediately returned, both in the catheter, and around the catheter. Patient continued to void/urinate, after the Anders catheter was removed, and he was able to urinate without difficulty. Urine is clear/yellow. Patient states he does not take systemic anticoagulation. Laboratory studies are reviewed and appreciated. Hyperglycemia improving, glucose now 306 without significant anion gap. This is most likely because patient did not take his oral medication. Suitable for discharge with oral antibiotics, and outpatient urology/primary care follow- up. Patient is observed in this department for hours without clinical decompensation, and endorses reliability to follow-up. I specifically counseled the patient on the need to closely follow-up with outpatient urology to be evaluated for potential urologic tumor, cancer, malignancy. He has endorsed understanding of this. Critical care attestation.: If time is entered above; I have spent that time in minutes in the direct care of this critically ill patient, excluding procedure time. ED Disposition Clinical Impression: Hyperglycemia Hematuria Qualifiers: Hematuria type: unspecified type Qualified Code(s): R31.9 - Hematuria, u nspecified Disposition: DC-01 TO HOME OR SELFCARE Is pt being admited?: No Does the pt Need Aspirin: No Condition: Stable Instructions: Hematuria, Adult, Hyperglycemia Additional Instructions: Minimize/avoid consumption of Motrin, ibuprofen, Naprosyn, Aleve. Take the antibiotics as directed. Continue current outpatient medications otherwise. Follow-up with a urologist, such as Dr. Sharp, within the next 2 weeks. Patient will need to follow-up with a urologic specialist to be evaluated for potential cancer, tumor, malignancy of the genitourinary system. Please follow-up with your primary care doctor within the next month, please make certain to remain compliant with a diabetic diet, and with your diabetic medications. Cultures were sent today, and results to be available in the next 3 to 5 days. Please have your primary care doctor contact medical records department to obtain culture results. Please return to the emergency room right away with new pain, worsening pain, migration of pain, projectile vomiting, change in mental status, confusion, inability to tolerate liquid feeds, new, worsened or different symptoms not present on the initial emergency room evaluation. Referrals: MARK BUTCHER MD [Staff Physician] - 3-5 Days HARLAN SHARP MD [Staff Physician] - 3-5 Days
[2020-04-22 10:29] VITALS: BP 157/73
[2020-04-22] MEDS ORDERED: INSULIN REGULAR, HUMAN 100 UNITS/1 ML ONE (10:30)
[2020-04-22] MEDS ORDERED: NITROFURANTOIN MONOHYD/M-CRYST 100 MG CAP PO ONE (10:56)
== END 2020-04-22 11:42 | disposition home or self-care (01) ==
LOC: ED 03:31
DX: E11.65 Type 2 diabetes mellitus with hyperglycemia (principal); R31.9 Hematuria, unspecified; R30.0 Dysuria; I10 Essential (primary) hypertension; Z90.49 Acquired absence of other specified parts of digestive tract; Z79.899 Other long term (current) drug therapy
CPT/HCPCS: 36415; 51702; 80053; 81001; 82550; 82962; 85025; 96372; J1815

== ENCOUNTER 2021-05-28 07:45 | Emergency (ER) | payer MEDICARE ==
[2021-05-28 07:54] VITALS: BP 172/75
--- NOTE | 2021-05-28 09:25 | Emergency Department Report ---
ED General Adult HPI - General Chief complaint: Urogenital-Male Stated complaint: CATHETER REMOVAL Time Seen by Provider: 05/28/21 08:28 Source: patient Mode of arrival: Ambulatory Limitations: No Limitations - History of Present Illness Initial comments: 71-year-old -German male patient with history of hypertension and diabetes presents for urinary catheter removal today. Patient was seen here in the ED and admitted to the hospital on 04/09/2021 for urinary obstruction and sepsis. Patient was to have a urinary stent placed, however he was discharged home with a indwelling catheter. Patient reports that he lost his discharge papers and was unable to follow-up with the urologist as instructed. He denies any fever/chills/sweats, abdominal pain, flank pain, or other symptoms and states he is feeling well today. Patient states he is wanting the catheter taken out because it is beginning to leak at the insertion of the catheter bag. He denies any hematuria, however he does state that the back seems to be filling up very quickly at night. - Related Data Home Medications Medication Instructions Recorded Confirmed Last Taken Aspirin [Aspirin BABY CHEW TAB] 81 mg PO DAILY 08/15/13 04/10/21 04/09/21 22:30 Simvastatin 20 mg PO QDAY 08/15/13 04/10/21 04/09/21 22:30 Previous Rx's Medication Instructions Recorded Last Taken Type guaiFENesin ER [Mucinex ER] 600 mg PO Q12H 10 Days #20 01/06/20 04/08/21 20:45 Rx tablet.er Acetaminophen [Acetaminophen TAB] 650 mg PO Q4H PRN tablet 05/28/20 04/08/21 20:45 Rx HYDROcodone/APAP 5-325 [[place] 2 each PO Q6H PRN tablet 05/28/20 Unknown Rx 5-325 mg TAB] carvediloL [Coreg] 12.5 mg PO BID #60 tab 05/28/20 04/09/21 22:30 Rx Doxazosin [Cardura] 4 mg PO QDAY 30 Days #30 tablet 04/16/21 Unknown Rx Fluconazole [Diflucan TAB] 400 mg PO QDAY 10 Days #20 tablet 04/16/21 Unknown Rx Insulin NPH/Regular [NovoLIN 70/30] 15 unit SUB-Q BIDDIAB 30 Days #9 ml 04/16/21 Unknown Rx Sodium Bicarbonate 1,300 mg PO TID 30 Days #180 tablet 04/16/21 Unknown Rx Doxycycline Hyclate 100 mg PO BID 7 Days #14 capsule 05/28/21 Unknown Rx Allergies Allergy/AdvReac Type Severity Reaction Status Date / Time No Known Allergies Allergy Verified 04/09/21 14:19 ED Review of Systems ROS: Stated complaint: CATHETER REMOVAL Other details as noted in HPI Constitutional: denies: chills, fever, malaise Respiratory: denies: cough, shortness of breath Cardiovascular: denies: chest pain Gastrointestinal: denies: abdominal pain, nausea, vomiting Genitourinary: denies: hematuria Skin: denies: rash, lesions, change in color Neurological: denies: headache Hematological/Lymphatic: denies: swollen glands ED Past Medical Hx - Past Medical History Hx Hypertension: Yes Hx Heart Attack/AMI: No Hx Congestive Heart Failure: No Hx Diabetes: Yes Hx Pulmonary Embolism: No Hx Liver Disease: No Hx Renal Disease: (absence of right kidney) Hx Sickle Cell Disease: No Hx Seizures: No Hx Asthma: No Hx COPD: No Hx Tuberculosis: No Hx HIV: No - Surgical History Hx Cholecystectomy: Yes Hx Appendectomy: Yes - Social History Smoking Status: Never Smoker - Medications Home Medications: Home Medications Medication Instructions Recorded Confirmed Last Taken Type Aspirin [Aspirin BABY CHEW TAB] 81 mg PO DAILY 08/15/13 04/10/21 04/09/21 22:30 History Simvastatin 20 mg PO QDAY 08/15/13 04/10/21 04/09/21 22:30 History guaiFENesin ER [Mucinex ER] 600 mg PO Q12H 10 Days #20 01/06/20 04/10/21 04/08/21 20:45 Rx tablet.er Acetaminophen [Acetaminophen TAB] 650 mg PO Q4H PRN tablet 05/28/20 04/10/21 04/08/21 20:45 Rx HYDROcodone/APAP 5-325 [[place] 2 each PO Q6H PRN tablet 05/28/20 04/10/21 Unknown Rx 5-325 mg TAB] carvediloL [Coreg] 12.5 mg PO BID #60 tab 05/28/20 04/10/21 04/09/21 22:30 Rx Doxazosin [Cardura] 4 mg PO QDAY 30 Days #30 tablet 04/16/21 Unknown Rx Fluconazole [Diflucan TAB] 400 mg PO QDAY 10 Days #20 tablet 04/16/21 Unknown Rx Insulin NPH/Regular [NovoLIN 70/30] 15 unit SUB-Q BIDDIAB 30 Days #9 ml 04/16/21 Unknown Rx Sodium Bicarbonate 1,300 mg PO TID 30 Days #180 tablet 04/16/21 Unknown Rx Doxycycline Hyclate 100 mg PO BID 7 Days #14 capsule 05/28/21 Unknown Rx ED Physical Exam - General Limitations: No Limitations General appearance: alert, in no apparent distress - Head Head exam: Present: atraumatic, normocephalic - Eye Eye exam: Present: normal appearance - Respiratory Respiratory exam: Absent: respiratory distress - Cardiovascular Cardiovascular Exam: Present: regular rate - GI/Abdominal GI/Abdominal exam: Present: soft. Absent: distended, tenderness, guarding, rebound, rigid - Neurological Exam Neurological exam: Present: alert, oriented X3 - Psychiatric Psychiatric exam: Present: normal affect, normal mood - Skin Skin exam: Present: warm, dry, intact, normal color. Absent: rash ED Course Vital Signs 05/28/21 05/28/21 05/28/21 07:50 08:28 09:20 Temperature 98.5 F Pulse Rate 87 Respiratory 16 16 Rate Blood Pressure 172/75 O2 Sat by Pulse 96 96 Oximetry ED Medical Decision Making - Lab Data Lab Results 05/28/21 Range/Units 09:42 Urine Color Yellow (Yellow) Urine Turbidity Cloudy (Clear) Urine pH 7.0 (5.0-7.0) Ur Specific [place] 1.005 (1.003-1.030) Urine Protein 30 mg/dl (Negative) mg/dL Urine Glucose (UA) >=500 (Negative) mg/dL Urine Ketones Neg (Negative) mg/dL Urine Blood Sm (Negative) Urine Nitrite Neg (Negative) Urine Bilirubin Neg (Negative) Urine Urobilinogen < 2.0 (<2.0) mg/dL Ur Leukocyte Esterase Lg (Negative) Urine WBC (Auto) > 182.0 H (0.0-6.0) /HPF Urine RBC (Auto) 47.0 (0.0-6.0) /HPF U Epithel Cells (Auto) 1.0 (0-13.0) /HPF Urine WBC Clumps 2+ /HPF - Medical Decision Making 71-year-old -German male patient with history of hypertension and diabetes presents for urinary catheter removal today. Patient was seen here in the ED and admitted to the hospital on 04/09/2021 for urinary obstruction and sepsis. Patient was to have a urinary stent placed, however he was discharged home with a indwelling catheter. Patient reports that he lost his discharge papers and was unable to follow-up with the urologist as instructed. He denies any fever/chills/sweats, abdominal pain, flank pain, or other symptoms and states he is feeling well today. Patient states he is wanting the catheter taken out because it is beginning to leak at the insertion of the catheter bag. He denies any hematuria, however he does state that the back seems to be filling up very quickly at night. Anders catheter removed. Clean-catch specimen sent to lab and shows UTI. Will treat with doxycycline. Patient to follow-up with urology within 2 to 3 days, referral provided again. Referral also provided for nephrology. Patient is otherwise well-appearing, his vitals are stable, he is stable for discharge home. Discussed in detail signs symptoms that should prompt immediate return to the ED with patient who verbalizes understanding Critical care attestation.: If time is entered above; I have spent that time in minutes in the direct care of this critically ill patient, excluding procedure time. ED Disposition Clinical Impression: Urinary catheter insertion/adjustment/removal, UTI (urinary tract infection) Disposition: 01 HOME / SELF CARE / HOMELESS Is pt being admited?: No Condition: Stable Instructions: Urinary Tract Infection, Adult, [id number] Prescriptions: Doxycycline Hyclate 100 mg PO BID 7 Days #14 capsule Referrals: HARLAN WHITFIELD MD [Staff Physician] - 3-5 Days TEENA DAVALOS MD [Staff Physician] - 3-5 Days
[2021-05-28 10:25] LABS: Bilirubin,Urine NEG (Negative); Blood,Urine SM (Negative); Color,Urine Yellow (Yellow); Urobilinogen,Urine < 2.0 mg/dL (<2.0)
[2021-05-28 10:37] LABS: WBC,Urine > 182.0 /HPF (0.0-6.0)
== END 2021-05-28 11:19 | disposition home or self-care (01) ==
LOC: ED 07:45
DX: Z46.6 Encounter for fitting and adjustment of urinary device (principal); N39.0 Urinary tract infection, site not specified; I10 Essential (primary) hypertension; E11.8 Type 2 diabetes mellitus with unspecified complications; Z90.49 Acquired absence of other specified parts of digestive tract; Z98.890 Other specified postprocedural states
CPT/HCPCS: 81001; 99283